=== PATIENT | female | born 1995 | race Caucasian/White ===

== ENCOUNTER 2018-03-11 02:05 | Emergency (ER) | payer OTHER ==
[2018-03-11] MEDS ORDERED: Ketorolac INJ* 30 MG/ML 1 ML VIAL IV ONE (02:22)
[2018-03-11] MEDS ORDERED: Metoclopramide IV* 5 MG/ML 2 ML VIAL IV ONE (02:22)
[2018-03-11] MEDS ORDERED: Morphine VIAL* 4 MG/ML VIAL (1 ml vial) IV ONE (02:24)
[2018-03-11] MEDS ORDERED: NS 0.9% 1000 ML* 1,000 ML IV ONE (02:24)
[2018-03-11 02:38] LABS: ABS Basophils 0 10^3/ul (0-0.2); ABS Eosinophils 0.1 10^3/ul (0-0.6); ABS Lymphocytes 2.5 10^3/ul (1.0-4.8); ABS Monocytes 0.5 10^3/ul (0-0.8); ABS Neutrophils 4.7 10^3/ul (1.5-7.7); ABS Nucleated RBC 0 10^3/ul; Eosinophil % 1.3 % (0-6); Hematocrit 37 % (35-47); Hemoglobin 12.8 g/dl (12.0-16.0); Lymphocyte % 32.3 % (25-47); Mean Corpuscular HGB Conc 34 g/dl (31-36); Mean Corpuscular Hemoglobin 33 pg (27-31); Mean Corpuscular Volume 95 fL (80-97); Mean Platelet Volume 10.7 um3 (7.4-10.4); Nucleated Red Blood Cells % 0.1; Platelet Count 142 10^3/ul (150-450); Red Blood Count 3.93 10^6/ul (4.00-5.40); Red Cell Distribution Width 13 % (10.5-15); White Blood Count 7.8 10^3/ul (3.5-10.8)
[2018-03-11 02:58] LABS: EGFR Non-African American 84.5 (>60)
[2018-03-11] MEDS ORDERED: Iohexol 300* (CONTRAST) 10 ML SDV IV ONE (03:24)
[2018-03-11] MEDS ORDERED: Magnesium CITRATE* 300 ML BTL PO ONE (05:06)
[2018-03-11] MEDS ORDERED: Bisacodyl SUPP* 10 MG SUPP PR ONE (05:07)
--- NOTE | 2018-03-11 05:18 | ED ---
[place] Angela, scribed for Live Smith MD on 03/11/18 at 0221 . Abdominal Pain/Female - HPI Summary HPI Summary: This pt is a 22 y/o female presenting to [facility] c/o right lower abdominal pain since yesterday. Pt reports her abd pain began yesterday at about 10:00 with cramping. She states that around 15:00 yesterday she began to feel sharper pain. Pt describes right lower abdominal pain radiating to right flank. Additionally c/o nausea. Her last bowel movement was this morning. Denies urinary symptoms, fever, diarrhea, constipation. Her pain is aggravated with coughing. Pt does have hx of ovarian cysts, about 1 cm. Denies abdominal surgeries. LMP: last week, ended 3 days ago. - History of Current Complaint Chief Complaint: EDAbdPain Stated Complaint: ABD PAIN Hx Obtained From: Patient Hx Last Menstrual Period: NOW Onset/Duration: Gradual Onset, Lasting Hours, Still Present Timing: Hours Severity Currently: Severe Pain Intensity: 8 Pain Scale Used: 0-10 Numeric Location: Discrete At: RLQ Radiates: Yes Radiates to: Flank - right Character: Sharp, Cramping Aggravating Factor(s): Other: - cough Alleviating Factor(s): Nothing Associated Signs and Symptoms: Positive: Nausea. Negative: Fever, Constipation , Urinary Symptoms, Vomiting, Diarrhea Allergies/Adverse Reactions: Allergies Allergy/AdvReac Type Severity Reaction Status Date / Time No Known Allergies Allergy Verified 08/08/16 10:02 Home Medications: Home Medications Clindamycin Phosphate [Clindamycin Phosphate 1 % TOPICAL] 50 gm TP DAILY [History Confirmed 03/11/18] Doxycycline Hyclate 50 mg Cap [Doxycycline Hyclate] 50 mg PO BID 03/11/18 [ History Confirmed 03/11/18] PMH/Surg Hx/FS Hx/Imm Hx Endocrine/Hematology History: Denies: Hx Anticoagulant Therapy, Hx Blood Disorders, Hx Diabetes Cardiovascular History: Denies: Hx Aneurysm, Hx Hypotension, Hx Hypertension Respiratory History: Denies: Hx Asthma History: Reports: Other Problems/Disorders - ovarian cysts Musculoskeletal History: Denies: Other Musculoskeletal History Sensory History: Denies: Other Sensory Impairments Opthamlomology History: Denies: Other Sensory Impairments Neurological History: Denies: Hx Headaches, Hx Migraine, Hx Peripheral Neuropathy, Other Neuro Impairments/Disorders Psychiatric History: Denies: Hx Anxiety, Hx Depression Infectious Disease History: No Infectious Disease History: Denies: Traveled Outside the [place] in Last 30 Days - Family History Known Family History: Positive: Cardiac Disease, Diabetes, Other - cancer - Social History Alcohol Use: None Hx Substance Use: No Substance Use Type: Reports: None Hx Tobacco Use: No Smoking Status (MU): Never Smoked Tobacco Review of Systems Negative: Fever, Chills ENT: Negative Cardiovascular: Negative Positive: Abdominal Pain, Nausea. Negative: Vomiting, Diarrhea, Other - constipation Positive: no symptoms reported, see HPI Skin: Negative Neurological: Negative All Other Systems Reviewed And Are Negative: Yes Physical Exam - Summary Physical Exam Summary: VITAL SIGNS: Reviewed. GENERAL: Patient is a well-developed and nourished female who is lying comfortable in the stretcher. Patient is not in any acute respiratory distress. HEAD AND FACE: No signs of trauma. No ecchymosis, hematomas or skull depressions. No sinus tenderness. EYES: PERRLA, EOMI x 2, No injected conjunctiva, no nystagmus. EARS: Hearing grossly intact. Ear canals and tympanic membranes are within normal limits. MOUTH: Oropharynx within normal limits. NECK: Supple, trachea is midline, no adenopathy, no JVD, no carotid bruit, no c- spine tenderness, neck with full ROM. CHEST: Symmetric, no tenderness at palpation LUNGS: Clear to auscultation bilaterally. No wheezing or crackles. CVS: Regular rate and rhythm, S1 and S2 present, no murmurs or gallops appreciated. ABDOMEN: Soft. Right lower quadrant tenderness. No signs of distention. No rebound no guarding, and no masses palpated. Bowel sounds are normal. EXTREMITIES: FROM in all major joints, no edema, no cyanosis or clubbing. NEURO: Alert and oriented x 3. No acute neurological deficits. Speech is normal and follows commands. SKIN: Dry and warm Triage Information Reviewed: Yes Vital Signs On Initial Exam: Initial Vitals Temp Pulse Resp BP Pulse Ox 98.4 F 63 16 119/78 100 03/11/18 02:06 03/11/18 02:06 03/11/18 02:06 03/11/18 02:06 03/11/18 02:06 Vital Signs Reviewed: Yes Diagnostics - Vital Signs Vital Signs Temp Pulse Resp BP Pulse Ox 03/11/18 02:06 98.4 F 63 16 119/78 100 - Laboratory Result Diagrams: 03/11/18 02:30 03/11/18 02:30 Lab Statement: Any lab studies that have been ordered have been reviewed, and results considered in the medical decision making process. - CT Abdomen/Pelvis CT CT Interpretation: Positive (See Comments) - IMPRESSION: Right ovary appears minimally larger compared to 05/23/16 CT, approximately 4.5 x 2.6 x 3.4 cm, but is not well seen. 1.9 cm dominant follicle visible on prior exam is no longer appreciated. Further evaluation with pelvic ultrasound may be useful. Moderate feces colon. No bowel obstruction, colitis, free fluid or free air. Normal appendix. Unremarkable pancreas, kidneys, and gallbladder. Individualized dose optimization techniques were used for this CT. Dr. Smith has reviewed this report. CT Interpretation Completed By: Radiologist Re-Evaluation - Re-Evaluation First Eval Re-Evaluation Time: 05:09 Comment: I reviewed the CT results with the pt. She will be discharged home. Abdominal Pain Fem Course/Dx - Course Course Of Treatment: Pt is a 22 y/o female, with hx of ovarian cysts, who presents with right lower abdominal pain since yesterday. Pt reports her abd pain began yesterday at about 10:00 with cramping. She states that around 15:00 yesterday she began to feel sharper pain. Pt describes right lower abdominal pain radiating to right flank. Additionally c/o nausea. Her last bowel movement was this morning. Denies urinary symptoms, fever, diarrhea, constipation. Her pain is aggravated with coughing. Abdomen/Pelvis CT shows moderate feces colon. No bowel obstruction, colitis, free fluid or free air. Normal appendix. Unremarkable pancreas, kidneys, and gallbladder. In the ED course the pt was given IV fluids, Reglan, morphine, Toradol, magnesium citrate, dulcolax supp. Pt will be discharged home with follow up from PCP. - Diagnoses Provider Diagnoses: Constipation Discharge - Sign-Out/Discharge Documenting (check all that apply): Discharge/Admit/Transfer - Discharge - Discharge Plan Condition: Stable Disposition: HOME Patient Education Materials: Constipation (ED) Referrals: Mayte Ortiz NP [Primary Care Provider] - Additional Instructions: Please follow up with your primary care provider. RETURN TO EMERGENCY DEPARTMENT FOR ANY NEW OR WORSENING SYMPTOMS. The documentation as recorded by the [place] Angela accurately reflects the service I personally performed and the decisions made by , Live Smith MD.
[2018-03-11 05:52] VITALS: BP 100/53
--- NOTE | 2018-03-11 07:40 | RAD ---
INDICATION: Abdominal pain COMPARISON: CT abdomen pelvis May 23, 2016 TECHNIQUE: Axial source images were obtained from the hemidiaphragms to the symphysis pubis following administration of intravenous contrast only as requested by the emergency department. 88 mL of Omnipaque 300 was utilized. Coronal and sagittal reconstructed images were acquired. Lung bases: The lung bases are clear. Liver: The liver is normal in size. There are no masses. There is no ductal dilatation. Gallbladder: There are no calcified gallstones. There is no evidence of wall thickening or pericholecystic fluid. Spleen: The spleen is normal in size. There are no masses. Pancreas: There is no focal pancreatic mass or ductal dilatation. Adrenal glands: There is no evidence of adrenal mass. Kidneys: The kidneys are normal in size and position. There are prompt nephrograms and there is prompt excretion bilaterally. There are no renal parenchymal masses. There is no evidence of nephrolithiasis. Adenopathy: There is no evidence of adenopathy by size criteria. Fluid collections: There is probably a small amount of fluid in the cul-de-sac.. Vessels:There are no significant atherosclerotic changes involving the aorta. There is no focal aneurysm. The iliac vessels are normal in caliber. The IVC appears normal. GI tract: Limited evaluation without oral intravenous contrast. Large amount of retained stool. Limited evaluation the appendix. No periappendiceal inflammatory change. Pelvic organs: The uterus appears normal. There is an IUD. The left adnexa is normal. There is free fluid or there is a right ovarian cyst. At least limited without opacification of the adjacent bowel. Suggest follow-up pelvic ultrasonography is indicated. Bladder: There are no bladder masses. Abdominal and pelvic soft tissues: The extraperitoneal abdominal and pelvic soft tissues appear normal.. Osseous structures: There are no acute osseous findings. Other: None IMPRESSION: 1. Mildly Limited examination due to lack of oral contrast. 2. Large amount retained stool. 3. Limited evaluation appendix. No appendiceal abnormalities are seen, however. 4. Suspect free fluid and/or right adnexal cyst. This could be evaluated with pelvic ultrasonography if clinically indicated. Findings called to emergency department.
--- NOTE | 2018-03-11 08:58 | ED ---
Progress - Progress Note Progress Note: Patient's final CT scan read indicates free fluid and/or right adnexal cyst. Recommend follow-up with pelvic ultrasound. Discussed with patient who admits she had brief relief with pain meds while here in the ED last night (morphine and toradol) however pain has returned and is nearly unbearable. She is now aware that she has suspicious findings in the right lower quadrant including possible adnexal cyst. This could lead to ovarian torsion and recommend close follow-up with ultrasound either outpatient today [facility] or to return to the emergency department. Patient indicates she will return to the emergency department. Notified triage. Re-Evaluation - Re-Evaluation First Eval Re-Evaluation Time: 05:09 Comment: I reviewed the CT results with the pt. She will be discharged home. Course/Dx - Course Course Of Treatment: Pt is a 22 y/o female, with hx of ovarian cysts, who presents with right lower abdominal pain since yesterday. Pt reports her abd pain began yesterday at about 10:00 with cramping. She states that around 15:00 yesterday she began to feel sharper pain. Pt describes right lower abdominal pain radiating to right flank. Additionally c/o nausea. Her last bowel movement was this morning. Denies urinary symptoms, fever, diarrhea, constipation. Her pain is aggravated with coughing. Abdomen/Pelvis CT shows moderate feces colon. No bowel obstruction, colitis, free fluid or free air. Normal appendix. Unremarkable pancreas, kidneys, and gallbladder. In the ED course the pt was given IV fluids, Reglan, morphine, Toradol, magnesium citrate, dulcolax supp. Pt will be discharged home with follow up from PCP. - Diagnoses Provider Diagnoses: Constipation Discharge - Sign-Out/Discharge Documenting (check all that apply): Post-Discharge Follow Up - Discharge Plan Condition: Stable Disposition: HOME Patient Education Materials: Constipation (ED) Referrals: Mayte Ortiz NP [Primary Care Provider] - Additional Instructions: Please follow up with your primary care provider. RETURN TO EMERGENCY DEPARTMENT FOR ANY NEW OR WORSENING SYMPTOMS. - Billing Disposition and Condition Condition: STABLE Disposition: Home
== END 2018-03-11 05:52 | disposition home or self-care (01) ==
LOC: ED 02:05
DX: K59.00 Constipation, unspecified (principal); R11.0 Nausea; R10.31 Right lower quadrant pain; Z82.49 Family history of ischemic heart disease and other diseases of the circulatory system; Z83.3 Family history of diabetes mellitus; Z80.9 Family history of malignant neoplasm, unspecified
CPT/HCPCS: 36415; 74177; 80053; 83605; 83690; 83735; 84702; 85025; 86140; 96374; 96375; 99284; A9270-GY; J1885; J2270; J2765; Q9967

== ENCOUNTER 2018-03-11 10:16 | Emergency (ER) | payer OTHER ==
--- NOTE | 2018-03-11 11:30 | RAD ---
HISTORY: RLQ pain w/ adnexal mass COMPARISONS: CT dated March 11, 2018 TECHNIQUE: Multiple transverse and longitudinal ultrasound images were obtained of the pelvis using grayscale and color Doppler imaging using the endovaginal transducer. FINDINGS: UTERUS: The uterus measures 7.3 x 4.8 x 6.1 cm. The uterus is normal in shape, size, contour, and echotexture. ENDOMETRIUM: The endometrial stripe is smooth. The endometrium measures 0.6 cm in thickness. An IUD is noted centrally within the endometrial cavity towards the fundus. CUL-DE-SAC: There is a small amount of simple fluid within the cul-de-sac. This may be physiologic in a reproductive age female. RIGHT OVARY: The right ovary measures 7.2 x 3.7 x 3 cm. There is a heterogeneously hypoechoic cystic lesion of the right ovary measuring 2.3 x 2.4 x 1.9 cm. Normal arterial and venous waveforms are identifiable within the ovary on spectral Doppler imaging. There are simple cysts measuring up to 3 cm in size. LEFT OVARY: The left ovary measures 3.4 x 1.3 x 2.7 cm. Multiple follicles are noted. Normal arterial and venous waveforms are identifiable within the ovary on spectral Doppler imaging. BLADDER: The bladder is not well visualized. OTHER: None IMPRESSION: 1. NO SONOGRAPHIC FEATURES OF TORSION. PLEASE NOTE THAT PARTIAL OR INTERMITTENT TORSION MAY BE SONOGRAPHICALLY NORMAL. 2. AN IUD IS NOTED CENTRALLY WITHIN THE ENDOMETRIAL CAVITY TOWARDS THE FUNDUS.. 3. SMALL AMOUNT OF FLUID WITHIN THE PELVIS. THIS MAY BE PHYSIOLOGIC WITHIN A REPRODUCTIVE AGE FEMALE. 4. HETEROGENEOUSLY HYPOECHOIC CYSTIC LESION OF THE RIGHT OVARY, LIKELY HEMORRHAGIC CYST, MEASURING UP TO 2.4 CM IN SIZE. RECOMMEND FOLLOW-UP IMAGING IN 6 WEEKS-12 WEEKS TO DOCUMENT RESOLUTION.
[2018-03-11] MEDS ORDERED: Naproxen TAB* 250 MG PO ONE (11:50)
--- NOTE | 2018-03-11 12:19 | ED ---
GI/ HPI - HPI Summary HPI Summary: Pt here w/ RLQ pain since yesterday. Was seen here last night for same and CT scan reveals possible Rt adnexal cyst - recommends U/S. Called pt earlier this morning w/ updated CT results and pt reports pain persists and only had temporary relief w/ morphine and tordol while here. Explained there is concern for torsion when there is a cyst, especially w/ her ongoing pain so she returned. Notes her pain is somewhat better with heat pack since here this morning. Has nausea with pain. Denies all other sx. H/o ovarian cysts every year in March since 15 y.o. -has copper IUD, no previous hormone based meds for prevention. - History of Current Complaint Chief Complaint: EDUrogenitalProblems Time Seen by Provider: 03/11/18 10:27 Stated Complaint: ABD PAIN Hx Obtained From: Patient Hx Last Menstrual Period: NOW Pain Intensity: 8 - Allergy/Home Medications Allergies/Adverse Reactions: Allergies Allergy/AdvReac Type Severity Reaction Status Date / Time No Known Allergies Allergy Verified 08/08/16 10:02 Home Medications: Home Medications DOXYcycline CAP(*) [DOXYcycline 100MG CAP(*)] 50 mg PO BID 03/11/18 [History Confirmed 03/11/18] PMH/Surg Hx/FS Hx/Imm Hx Previously Healthy: Yes Endocrine/Hematology History: Denies: Hx Anticoagulant Therapy, Hx Blood Disorders, Hx Diabetes Cardiovascular History: Denies: Hx Aneurysm, Hx Hypotension, Hx Hypertension Respiratory History: Denies: Hx Asthma History: Reports: Other Problems/Disorders - ovarian cysts Musculoskeletal History: Denies: Other Musculoskeletal History Sensory History: Denies: Other Sensory Impairments Opthamlomology History: Denies: Other Sensory Impairments Neurological History: Denies: Hx Headaches, Hx Migraine, Hx Peripheral Neuropathy, Other Neuro Impairments/Disorders Psychiatric History: Denies: Hx Anxiety, Hx Depression Infectious Disease History: No Infectious Disease History: Denies: Traveled Outside the [place] in Last 30 Days - Family History Known Family History: Positive: Cardiac Disease, Diabetes, Other - cancer - Social History Occupation: Student - graduate @ [employer] Lives: With Family - son Alcohol Use: None Hx Substance Use: No Substance Use Type: Reports: None Hx Tobacco Use: No Smoking Status (MU): Never Smoked Tobacco Review of Systems Constitutional: Negative Negative: Fever, Chills, Fatigue Cardiovascular: Negative Respiratory: Negative Positive: Abdominal Pain, Nausea. Negative: Vomiting, Diarrhea Positive: see HPI Musculoskeletal: Negative Skin: Negative Neurological: Negative Psychological: Normal All Other Systems Reviewed And Are Negative: Yes Physical Exam Triage Information Reviewed: Yes Vital Signs On Initial Exam: Initial Vitals Temp Pulse Resp BP Pulse Ox 98.8 F 70 14 115/70 99 03/11/18 10:21 03/11/18 10:21 03/11/18 10:21 03/11/18 10:21 03/11/18 10:21 Vital Signs Reviewed: Yes Appearance: Positive: Well-Appearing, Well-Nourished, Pain Distress - mild Skin: Positive: Warm, Skin Color Reflects Adequate Perfusion, Dry Head/Face: Positive: Normal Head/Face Inspection Eyes: Positive: EOMI, Conjunctiva Clear - anicteric sclera ENT: Positive: Hearing grossly normal, Pharynx normal - mucosa moist Neck: Positive: Supple Respiratory/Lung Sounds: Positive: Breath Sounds Present Cardiovascular: Positive: Normal Abdomen Description: Positive: No Organomegaly, Soft, Other: - mild RLQ TTP w/o rebounding. Negative: Distended, Guarding Bowel Sounds: Positive: Present Pelvic Exam: Positive: Other - deferred Musculoskeletal: Positive: Normal, Strength/ROM Intact Neurological: Positive: Normal, Sensory/Motor Intact, Alert, Oriented to Person Place, Time, CN Intact II-III Psychiatric: Positive: Normal Diagnostics - Vital Signs Vital Signs Temp Pulse Resp BP Pulse Ox 03/11/18 10:21 98.8 F 70 14 115/70 99 - Laboratory Lab Statement: Any lab studies that have been ordered have been reviewed, and results considered in the medical decision making process. GIGU Course/Dx - Course Course Of Treatment: TVUS reveals 2.4 cm ovarian cyst, possibly hemorrhagic w/o torsion. IUD in place. Discussed w/ pt who reports she would like to try naproxen and heat packs at home w/ close f/u through [facility]. Also discussed possible options for ovarian cyst prevention - pt will discuss in further detail w/ [facility] Staff. Reviewed danger s/sx of when to return to ED. - Diagnoses Provider Diagnoses: Right ovarian cyst Discharge - Sign-Out/Discharge Documenting (check all that apply): Discharge/Admit/Transfer - Discharge Plan Condition: Stable Disposition: HOME Prescriptions: Naproxen [Naproxen 500 mg tab] 500 mg PO BID #20 tablet Patient Education Materials: Ovarian Cyst (ED) Forms: *School Release Referrals: [facility] - [place] [Medical Doctor] - Additional Instructions: You appear to have a right ovarian cyst of 2.4 cm. There is no torsion seen on your ultrasound and your IUD is appropriately placed. This may be treated with heat packs, warm bath, Castrol oil packs and/or naproxen. Follow up with [facility] for repeat ultrasound - call today to schedule an appointment. *If you develop worsening of pain in the meantime, return to the emergency department. [place] Oil Transdermal Packs 1. A wash cloth should be soaked in pure, cold-pressed castor oil that is obtained from a health food store. 2. The wash cloth should be placed on bare skin on the lower stomach. 3. Put a piece of plastic on top of the cloth, such as a plastic grocery bag. 4. Place a hot water bottle on top of that. The water should be made as hot as possible, so long as the patient can tolerate it. 5. Leave this in place for at least 30 minutes. The above procedure can also be done repeatedly during the cycle to provide relief. However one treatment is usually enough to provide relief. Women should use only dioxin-free, unchlorinated feminine products, especially tampons. Consuming [place] nuts is ideal, because they contain folate, selenium, and magnesium, which have all been shown to reduce menstrual cramps. - Billing Disposition and Condition Condition: STABLE Disposition: Home
[2018-03-11 12:25] VITALS: BP 148/84
== END 2018-03-11 12:23 | disposition home or self-care (01) ==
LOC: ED 10:16
DX: N83.201 Unspecified ovarian cyst, right side (principal); R10.31 Right lower quadrant pain
CPT/HCPCS: 76830; 99282; A9270-GY

== ENCOUNTER 2019-10-20 09:42 | Emergency (ER) | payer OTHER ==
[2019-10-20 10:02] VITALS: BP 118/71
--- NOTE | 2019-10-20 10:15 | UC ---
Back Pain HPI - HPI Summary HPI Summary: 24 yo female presents with low back pain. 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 About 1 week ago she bent down to put on her work boots and felt a pull in her lower back with severe pain. She had difficulty rising to an upright positive and noticed pain radiating down both her legs. Over the course of ~1 hour she was ambulatory and moving around helped. She took tylenol and ibuprofen throughout the course of the week and continued her usual duties and pain was improving. Yesterday she was tending to an animal and twisted laterally and felt another pull in her lower back similar to prior episode. Pain has been constant since. She reports some burning her both of her feet with radiation of pain down both her legs. She has not taken any OTC medication today. She denies abdominal pain, n/v, dysuria, numbness, tingling, loss of bowel/bladder control, saddle anesthesia. - History of Current Complaint Chief Complaint: UCBackPain Stated Complaint: BACK PAIN Time Seen by Provider: 10/20/19 10:14 Hx Obtained From: Patient Hx Last Menstrual Period: 10/08/19 Onset/Duration: Sudden Onset Severity Initially: Severe Severity Currently: Severe Pain Intensity: 8 Pain Scale Used: 0-10 Numeric - Allergies/Home Medications Allergies/Adverse Reactions: Allergies Allergy/AdvReac Type Severity Reaction Status Date / Time No Known Allergies Allergy Verified 10/20/19 10:02 PMH/Surg Hx/FS Hx/Imm Hx - Additional Past Medical History Additional PMH: None Other History Of: Negative For: Anticoagulant Therapy - Surgical History Surgical History: None - Family History Known Family History: Positive: Cardiac Disease, Diabetes, Other - cancer - Social History Lives: With Family Alcohol Use: Rare Substance Use Type: None Smoking Status (MU): Never Smoked Tobacco - Immunization History Most Recent Tetanus Shot: 2014 Review of Systems All Other Systems Reviewed And Are Negative: No Constitutional: Positive: Negative Skin: Positive: Negative Respiratory: Positive: Negative Cardiovascular: Positive: Negative Neurovascular: Positive: Negative Musculoskeletal: Positive: Other: - Back pain Neurological/Mental Status: Positive: Negative Psychological: Positive: Negative Physical Exam - Summary Physical Exam Summary: GENERAL: NAD. WDWN. No pain distress. SKIN: No rashes, sores, lesions, or open wounds. NECK: Supple. FROM. Nontender. No lymphadenopathy. CHEST: CTAB. No r/r/w. No accessory muscle use. Breathing comfortably and in no distress. CV: RRR. Pulses intact. Cap refill <2seconds MSK: TTP over lumbar paraspinal muscles. Pain with flexion and extension of spine. Positive SLR b/l for low back pain without radiation. Strength 5/5 B/L LEs including dorsiflexion and plantar flexion. FROM B/L LEs. No edema. NEURO: Alert. Sensations intact B/L LEs L3-S1. Reflexes intact PSYCH: Age appropriate behavior. Triage Information Reviewed: Yes Vital Signs: Initial Vital Signs Temp 97.5 F 10/20/19 09:59 Pulse 67 10/20/19 09:59 Resp 18 10/20/19 09:59 BP 118/71 10/20/19 09:59 Pulse Ox 100 10/20/19 09:59 Vital Signs Reviewed: Yes Diagnostics - Radiology XR Radiology Interpretation Completed By: Radiologist Summary of Radiographic Findings: IMPRESSION: MILD DISC SPACE NARROWING AT THE L5-S1 LEVEL. Back Pain Course/Dx - Course Course Of Treatment: XR as above. Reviewed with pt. She muscle spasm vs disc pathology. In the clinic she was given toradol IM 60mg for her discomfort and had improvement of her pain from about an 8/10 to 4/10. Rx for flexeril, naproxen, and prednisone. Advised rest, ice/heat, and practice gentle ROM exercises. F/u with [facility] if needed. - Differential Dx/Diagnosis Provider Diagnosis: Low back pain Discharge ED - Sign-Out/Discharge Documenting (check all that apply): Patient Departure All imaging exams completed and their final reports reviewed: Yes - Discharge Plan Condition: Stable Disposition: HOME Prescriptions: Cyclobenzaprine TAB* [Flexeril 10 MG TAB*] 10 mg PO TID PRN #21 tab PRN Reason: Pain - Moderate Naproxen [Naproxen 500 mg tab] 500 mg PO BID PRN #30 tablet.dr PRN Reason: Pain - Moderate predniSONE 20 mg TAB [Deltasone 20 MG TAB*] 20 mg PO DAILY #14 tab Patient Education Materials: Back Pain (ED), Lower Back Exercises (ED) Referrals: Hari VIRGEN,Felisa Odell [Primary Care Provider] - [facility] [Provider Group] - If Needed Additional Instructions: If you develop a fever, shortness of breath, chest pain, new or worsening symptoms - please call your PCP or go to the ED immediately. Do not take any ibuprofen/naproxen/motrin today as you were given an injection of a similar medication in the clinic today. Rest, Ice/Heat, and practice gentle range of motion exercises for your lower back. If your back pain worsens, you develop numbness, or if you have continued or recurring symptoms - please call [facility] at the number below to schedule an appointment for a recheck - Billing Disposition and Condition Condition: STABLE Disposition: Home - Attestation Statements Provider Attestation: I was available for consult. This patient was seen by the CARLO. The patient was not presented to, seen by, or examined by me. -Keanu
[2019-10-20] MEDS ORDERED: Ketorolac *IM* INJ* 60 MG/2 ML VIAL IM ONE (10:24)
== END 2019-10-20 11:24 | disposition home or self-care (01) ==
LOC: UCEAST 09:42
DX: M54.5 Low back pain (principal); M51.87 Other intervertebral disc disorders, lumbosacral region
CPT/HCPCS: 72110; 96372; 99212; G0463; J1885